=== PATIENT | female | born 1970 | race Caucasian/White ===

== ENCOUNTER 2020-07-03 18:06 | Emergency (ER) | payer OTHER ==
[~2020-07-03] VITALS: Ht 154.9 cm; Wt 66.2 kg
[~2020-07-03 18:06] MED LIST: ALLEGRA60 MG PO; APAP500 PO; DEXILANT60 MG PO; IBUPROFEN 600600 M1 PO; MICROGESTIN FE1 EAC1 PO; NAPROSYN500 MG PO; ONDANSETRON HCL4 M2 PO; PHENERGAN50 MG RECTAL; QUINU10 PD; VICODIN 5-5001 EACH PO
[2020-07-03] MEDS ORDERED: SIMETHICON CHEW80 M1 PO (18:20)
[2020-07-03] MEDS ORDERED: ZYRTEC10 M5 PO (18:20)
[2020-07-03] MEDS ORDERED: SINGULAIR 10 MG10 M1 PO (18:20)
[2020-07-03 19:41] LABS: CALCIUM 9.5 mg/dL (8.5-10.1); CREATININE 1.1 mg/dL (0.6-1.3); POTASSIUM 3.5 mmol/L (3.5-5.1)
[2020-07-03 19:54] LABS: ALBUMIN 4.1 g/dL (3.4-5.0); MAGNESIUM 2.1 mg/dL (1.8-2.4); TOTAL BILIRUBIN 0.7 mg/dL (<0.1-1.0); TOTAL PROTEIN 8.5 g/dL (6.4-8.2)
[2020-07-03 19:57] LABS: ABSOLUTE LYMPHOCYTES 2.4 thou/uL (0.8-5.3); ABSOLUTE MONOCYTES 0.4 thou/uL (0.0-1.2); ABSOLUTE NEUTROPHILS 5.1 thou/uL (1.6-8.1); BASOPHILS 0.6 %; EOSINOPHILS 0.6 %; HEMATOCRIT 38.8 % (37.0-47.0); HEMOGLOBIN 13.3 gm/dL (12.0-15.0); LYMPHOCYTES 29.9 %; MCH 31.8 pg (26.0-34.0); MCHC 34.3 g/dL (28.0-37.0); MCV 92.7 fL (80.0-100.0); MONOCYTES 5.5 %; MPV 11.1 fl. (7.2-11.1); NUCLEATED RBCS 0 /100WBC; PLATELET COUNT* 140 thou/uL (150-400); POLYS 63.4 %; RBC 4.18 mil/uL (4.20-5.00); RDW-CV 12.5 % (10.5-14.5)
[2020-07-03 21:07] LABS: URINE BILIRUBIN NEGATIVE (Negative); URINE BLOOD TRACE (Negative); URINE CLARITY CLEAR; URINE COLOR YELLOW; URINE GLUCOSE-RANDOM NEGATIVE (Negative); URINE KETONES TRACE (Negative); URINE LEUKOCYTES-REFLEX NEGATIVE (Negative); URINE NITRITE-REFLEX NEGATIVE (Negative); URINE PROTEIN NEGATIVE (Negative); URINE UROBILINOGEN 0.2 E.U./dl (0.2-1.0)
[2020-07-03 21:31] VITALS: BP 138/75
== END 2020-07-03 21:32 | disposition home or self-care (01) ==
LOC: M.ERS 18:06
PROVIDERS: Emergency Medicine; Nurse Practitioner Family
DX: R25.2 Cramp and spasm (principal); R20.2 Paresthesia of skin; Z98.890 Other specified postprocedural states; Z90.89 Acquired absence of other organs